=== PATIENT | male | born 1985 | race American Indian/Alaskan Native ===

== ENCOUNTER 2018-08-18 01:32 | Emergency (ER) | payer OTHER ==
[2018-08-18 02:00] LABS: Basophils % (Auto) 0.3 % (0.0-1.8); Eosinophils % (Auto) 0.2 % (0.0-4.3); Hematocrit 39.5 % (35.5-45.6); Hemoglobin 13.3 gm/dl (11.8-15.2); Lymphocytes # (Auto) 1.1 K/mm3 (1.2-5.4); Lymphocytes % (Auto) 15.2 % (13.4-35.0); Mean Corpuscular HGB Conc 34 % (32-34); Mean Corpuscular Volume 85 fl (84-94); Monocytes # (Auto) 0.8 K/mm3 (0.0-0.8); Monocytes % (Auto) 10.3 % (0.0-7.3); Platelet Count 200 K/mm3 (140-440); Red Blood Count 4.67 M/mm3 (3.65-5.03); Red Cell Distribution Width 15.7 % (13.2-15.2)
[2018-08-18 02:23] LABS: Alanine Aminotransferase 22 units/L (7-56); Albumin 4.1 g/dL (3.9-5); BUN/Creatinine Ratio 8; Blood Urea Nitrogen 8 mg/dL (9-20); Calcium 9.3 mg/dL (8.4-10.2); Hemolysis Index 2
[2018-08-18] MEDS ORDERED: ZOFRAN IV ONE (02:42)
[2018-08-18] MEDS ORDERED: NACL 0.9% 1000 ML 1,000 ML IV ONE (02:42)
[2018-08-18] MEDS ORDERED: MORPHINE IV ONE (02:42)
--- NOTE | 2018-08-18 02:47 | Emergency Department Report ---
HPI - General Chief Complaint: Abdominal Pain Time Seen by Provider: 08/18/18 02:31 - HPI HPI: 33-year-old Citizen Of [place] male presents to the emergency department with a complaint of a 2 day history of some generalized abdominal pain. He denies any nausea, vo miting, fever, constipation or diarrhea. He has taken some ibuprofen for his pain with some transient relief. No past medical history. Patient presents by EMS and did not receive anything in route. No recent travel or sick contacts at home. Does not have a primary care physician. ED Past Medical Hx - Past Medical History Previous Medical History?: No - Surgical History Past Surgical History?: No - Social History Smoking Status: Current Some Day Smoker Substance Use Type: Alcohol, Marijuana - Medications Home Medications: Home Medications Medication Instructions Recorded Confirmed Last Taken Type Amoxicillin/Potassium Clav 1 each PO TID #30 tablet 08/18/18 Unknown Rx [Augmentin 500-125 Tablet] HYDROcodone/APAP 5-325 [Hudson 1 each PO Q6HR PRN #12 tablet 08/18/18 Unknown Rx 5/325] ED Review of Systems ROS: Stated complaint: ABD PAIN Other details as noted in HPI Comment: All other systems reviewed and negative Constitutional: denies: chills, fever Eyes: denies: eye pain, vision change ENT: denies: ear pain, throat pain Respiratory: denies: cough, shortness of breath Cardiovascular: denies: chest pain, palpitations Gastrointestinal: abdominal pain. denies: nausea, vomiting Genitourinary: denies: dysuria, frequency Musculoskeletal: denies: back pain, arthralgia Skin: denies: rash, lesions Neurological: denies: weakness, numbness Physical Exam - Physical Exam Vital Signs: Vital Signs 08/18/18 01:35 Temperature 99.1 F Pulse Rate 77 Respiratory 18 Rate Blood Pressure 139/97 Blood Pressure 139/97 [Right] O2 Sat by Pulse 94 Oximetry Physical Exam: GENERAL: The patient is well-developed well-nourished. HENT: Normocephalic. Atraumatic. Patient has moist mucous membranes. EYES: Extraocular motions are intact. Pupils equal reactive to light bilaterally. NECK: Supple. Trachea is midline. CHEST/LUNGS: Clear to auscultation. There is no respiratory distress noted. HEART/CARDIOVASCULAR: Regular. There is no tachycardia. There is no murmur. ABDOMEN: Abdomen is soft. Generalized tenderness to palpation of the abdomen. No guarding. Patient has normal bowel sounds. There is no abdominal distention. SKIN: Skin is warm and dry. NEURO: The patient is awake, alert, and oriented. The patient is cooperative. The patient has no focal neurologic deficits. The patient has normal speech. MUSCULOSKELETAL: There is no tenderness or deformity. There is no limitation range of motion. There is no evidence of acute injury. ED Course Vital Signs 08/18/18 01:35 Temperature 99.1 F Pulse Rate 77 Respiratory 18 Rate Blood Pressure 139/97 Blood Pressure 139/97 [Right] O2 Sat by Pulse 94 Oximetry ED Medical Decision Making - Lab Data Result diagrams: 08/18/18 01:47 08/18/18 01:47 - Radiology Data Radiology results: report reviewed PROCEDURE: CT ABDOMEN PELVIS W CON TECHNIQUE: Computerized axial tomography of the abdomen and pelvis was performed after the administration of IV iodinated nonionic contrast. HISTORY: Abd pain COMPARISONS: None . FINDINGS: Partially visualized intrathoracic contents are unremarkable. The liver, gallbladder, pancreas, spleen, and adrenal glands are unremarkable. Kidneys show no worrisome lesions, hydronephrosis, or calculi. No urothelial abnormality demonstrated on delayed excretory phase imaging Urinary bladder is unremarkable. The terminal ileum, ascending, and proximal portion of the transverse colon show circumferential wall thickening and pericolonic edema and stranding. No pneumoperitoneum or abscess. The appendix is normal in caliber and fluid-filled without specific periappendiceal stranding or edema. There is trace fluid in the right paracolic gutter. Aorta is normal in course and caliber. Superficial soft tissues are unremarkable. No acute or aggressive appearing skeletal findings. IMPRESSION: Terminal ileitis and ascending and transverse colitis may be infectious or inflammatory (Crohn's disease) in etiology. Mild (if any) secondary involvement of the appendix. No pneumoperitoneum or abscess formation. This document is electronically signed by Tavia Sanchez MD., August 18 2018 05:27:36 AM ET Transcribed By: MARITO Dictated By: TAVIA SANCHEZ MD Electronically Authenticated By: TAVIA SANCHEZ MD Signed Date/Time: 08/18/18 0529 - Medical Decision Making Patient presents with a few days of some abdominal pain. Vital signs stable without any fever. Labs are unremarkable including no leukocytosis. Normal belly labs. CT abdomen and pelvis was done that shows terminal ileitis and colitis. Patient is able to pass an oral challenge. Since he is afebrile with normal blood work, and since we were able to provide some pain control, the patient will be treated outpatient. He was given antibiotics, pain medication and a referral for gastroenterology. He will return to the ER with any worsening of his symptoms or any acute distress. - Differential Diagnosis colitis, diverticulitis, pancreatitis, cholelithiasis, cholecystitis Critical Care Time: No Critical care attestation.: If time is entered above; I have spent that time in minutes in the direct care of this critically ill patient, excluding procedure time. ED Disposition Clinical Impression: Colitis Ileitis, terminal Qualifiers: Digestive disease complication type: without complication Qualified Code(s): K50.00 - Crohn's disease of small intestine without complications Abdominal pain Qualifiers: Abdominal location: generalized Qualified Code(s): R10.84 - Generalized abdominal pain Disposition: TO HOME OR SELFCARE Is pt being admited?: No Condition: Stable Instructions: Infectious Colitis (ED) Additional Instructions: Please follow up with a primary care physician in the next few days. I am also giving him a referral for a local telephone claims representative, Dr. Quiroz, to follow up regarding your abdominal pain and intestinal inflammation/infection. Return to the emergency Department with any worsening of your symptoms or any acute distress. You have been prescribed a medication that is sedating and therefore should not be taken prior to driving, working, and responsible for children and in no way should be mixed with alcohol of any quantity. Prescriptions: Amoxicillin/Potassium Clav [Augmentin 500-125 Tablet] 1 each PO TID #30 tablet HYDROcodone/APAP 5-325 [Hudson 5/325] 1 each PO Q6HR PRN #12 tablet PRN Reason: Pain Referrals: CEFERINO QUIROZ MD [Staff Physician] - 2-3 Days [facility] [Outside] - 2-3 Days Time of Disposition: 05:45
[2018-08-18 03:16] LABS: Bacteria,Urine 3+ /HPF (Negative); Bilirubin,Urine NEG (Negative); Blood,Urine SM (Negative); Color,Urine Amber (Yellow); Mucus,Urine 3+ /HPF
--- NOTE | 2018-08-18 05:29 | Cat Scan Report ---
PROCEDURE: CT ABDOMEN PELVIS W CON TECHNIQUE: Computerized axial tomography of the abdomen and pelvis was performed after the administr ation of IV iodinated nonionic contrast. HISTORY: Abd pain COMPARISONS: None . FINDINGS: Partially visualized intrathoracic contents are unremarkable. The liver, gallbladder, pancreas, spleen, and adrenal glands are unremarkable. Kidneys show no worrisome lesions, hydronephrosis, or calculi. No urothelial abnormality demonstrated on delayed excretory phase imaging Urinary bladder is unremarkable. The terminal ileum, ascending, and proximal portion of the transverse colon show circumferential wall thickening and pericolonic edema and stranding. No pneumoperitoneum or abscess. The appendix is norm al in caliber and fluid-filled without specific periappendiceal stranding or edema. There is trace fl uid in the right paracolic gutter. Aorta is normal in course and caliber. Superficial soft tissues are unremarkable. No acute or aggressive appearing skeletal findings. IMPRESSION: Terminal ileitis and ascending and transverse colitis may be infectious or inflammatory (Crohn's dise ase) in etiology. Mild (if any) secondary involvement of the appendix. No pneumoperitoneum or abscess formation. This document is electronically signed by Howard Patel MD., August 18 2018 05:27:36 AM ET
[2018-08-18] MEDS ORDERED: AUGMENTIN 875 MG PO ONE (05:43)
[2018-08-18 06:07] VITALS: BP 136/92
== END 2018-08-18 06:00 | disposition home or self-care (01) ==
LOC: ED 01:32
DX: K52.9 Noninfective gastroenteritis and colitis, unspecified (principal); F17.200 Nicotine dependence, unspecified, uncomplicated; F12.10 Cannabis abuse, uncomplicated; K50.00 Crohn's disease of small intestine without complications
CPT/HCPCS: 36415; 74177; 80053; 81001; 83690; 85025; 87086; 87186; 96361; 96374; 96375; 99284; J2270; J2405; J7030; Q9967